=== PATIENT | female | born 1990 | race Caucasian/White ===

== ENCOUNTER 2020-10-25 22:16 | Emergency (ER) | payer MEDICARE, MEDICAID ==
[~2020-10-25] VITALS: Ht 157.5 cm; Wt 128.8 kg
[2020-10-25 22:27] VITALS: BP 129/86
[2020-10-25] MEDS ORDERED: OLANZAPINE ODT5 MG PO (22:31)
[2020-10-25] MEDS ORDERED: [UNRECOGNIZED DRUG - OTHER] (22:31)
[2020-10-25] MEDS ORDERED: LISINOPRIL2.5 MG PO (22:31)
[2020-10-25] MEDS ORDERED: LEVO-T100 MCG PO (22:32)
[2020-10-25] MEDS ORDERED: VIACTIV 650 MG1 EACH PO (22:32)
[2020-10-25] MEDS ORDERED: LEVOTHYROXINE50 MC1 PO (22:33)
[2020-10-25] MEDS ORDERED: CHILDREN'S ZYRT10 M1 PO (22:33)
[2020-10-25] MEDS ORDERED: BUSPAR30 MG PO (22:34)
[2020-10-25] MEDS ORDERED: MONTELUKAST SODI4 M1 PO (22:34)
[2020-10-25] MEDS ORDERED: SERTRALINE HCL100 MG PO (22:34)
[2020-10-25] MEDS ORDERED: REVIA 50 MG TAB50 M1 PO (22:34)
[2020-10-25] MEDS ORDERED: NEURONTIN 300M300 M2 PO (22:35)
[2020-10-25] MEDS ORDERED: MINIPRESS2 MG PO (22:36)
[2020-10-25] MEDS ORDERED: MIRTAZAPINE45 MG PO (22:36)
[2020-10-25] MEDS ORDERED: DESYREL150 MG PO (22:37)
[2020-10-25] MEDS ORDERED: OLANZAPINE10 M1 PO (22:37)
[2020-10-25] MEDS ORDERED: LORAZEPAM 0.50.5 MG PO (22:38)
[2020-10-25] MEDS ORDERED: nitroglycerin RECTAL (23:19)
== END 2020-10-25 23:25 | disposition home or self-care (01) ==
LOC: M.ERS 22:16
DX: S36.63XA Laceration of rectum, initial encounter (principal); Z88.1 Allergy status to other antibiotic agents; X58.XXXA Exposure to other specified factors, initial encounter; Y93.89 Activity, other specified; Y92.89 Other specified places as the place of occurrence of the external cause; Y99.8 Other external cause status

== ENCOUNTER 2021-02-09 09:22 | Emergency (ER) | payer MEDICARE, MEDICAID ==
[~2021-02-09] VITALS: Ht 157.5 cm; Wt 129.7 kg
[~2021-02-09 09:22] MED LIST: BUSPAR30 MG PO; CHILDREN'S ZYRT10 M1 PO; DESYREL150 MG PO; LEVO-T100 MCG PO; LEVOTHYROXINE50 MC1 PO; LISINOPRIL2.5 MG PO; LORAZEPAM 0.50.5 MG PO; MINIPRESS2 MG PO; MIRTAZAPINE45 MG PO; MONTELUKAST SODI4 M1 PO; NEURONTIN 300M300 M2 PO; OLANZAPINE ODT5 MG PO; OLANZAPINE10 M1 PO; REVIA 50 MG TAB50 M1 PO; SERTRALINE HCL100 MG PO; VIACTIV 650 MG1 EACH PO; [UNRECOGNIZED DRUG - OTHER]; nitroglycerin RECTAL
[2021-02-09 10:42] LABS: URINE BILIRUBIN NEGATIVE (Negative); URINE BLOOD 1+ (Negative); URINE CLARITY CLOUDY; URINE COLOR YELLOW; URINE GLUCOSE-RANDOM NEGATIVE (Negative); URINE KETONES NEGATIVE (Negative); URINE PROTEIN TRACE (Negative); URINE UROBILINOGEN 0.2 E.U./dl (0.2-1.0)
[2021-02-09 10:43] LABS: URINE LEUKOCYTES-REFLEX 3+ (Negative); URINE NITRITE-REFLEX POSITIVE (Negative)
[2021-02-09] MEDS ORDERED: MACROBID 100 M100 M2 PO (10:49)
[2021-02-09] MEDS ORDERED: PHENAZOPYRIDIN200 M2 PO (10:49)
[2021-02-09 10:53] VITALS: BP 119/78
[2021-02-09 10:58] LABS: BACTERIA-REFLEX >30 Many /HPF (None Seen); CASTS None Seen /LPF (None Seen); CRYSTALS None Seen /LPF (None Seen); SQUAMOUS >10 Many /LPF (0-3)
[2021-02-09 10:59] LABS: URINE RBC 3-10 Few /HPF (0-2)
== END 2021-02-09 10:54 | disposition home or self-care (01) ==
LOC: M.ERS 09:22
PROVIDERS: Family Medicine
DX: N39.0 Urinary tract infection, site not specified (principal); E11.9 Type 2 diabetes mellitus without complications; F32.9 Major depressive disorder, single episode, unspecified; F41.9 Anxiety disorder, unspecified; Z79.899 Other long term (current) drug therapy; Z88.8 Allergy status to other drugs, medicaments and biological substances